=== PATIENT | female | born 2000 | race Caucasian/White ===

== ENCOUNTER 2020-05-01 15:56 | Emergency (ER) | payer BC ==
--- NOTE | 2020-05-01 16:13 | EDM.PDOC ---
ED HPI GENERAL MEDICAL PROBLEM - General Chief Complaint: General Stated Complaint: migraine, nausea Time Seen by Provider: 05/01/20 16:10 Source of Information: Reports: Patient, Old Records ([employer] EMR. No paper hospital chart available.) History Limitations: Reports: No Limitations. Denies: Language Barrier - History of Present Illness INITIAL COMMENTS - FREE TEXT/NARRATIVE: The patient drove herself to the emergency room for evaluation of her recurrent migraine headache with initial evaluation by her regular provider, PAPA Dhaliwal at the [facility] yesterday. The patient apparently received a Demerol/Phenergan injection at that time with initial complete resolution of her headache, however this did recur late last night and became more progressive at 12:30 p.m. this afternoon. She did try to take aspirin, however she immediately had one episode of emesis with no current nausea, etc.. Patient does have a long history of migraine headaches as below. No recent history of abdominal pain, heartburn, nausea, diarrhea, melena, gross hematochezia, or any food intolerance, including fatty foods, etc.. The patient also denies any recent fever, cough, wheezing, dyspnea, etc.. Her allergic rhinitis has been stable. Onset: Gradual Onset Date: 04/30/20 Duration: Getting Worse Location: Reports: Head. Denies: Face, Neck, Chest, Abdomen, Upper Extremity, Left, Upper Extremity, Right, Radiates to Quality: Reports: Same as Previous Episode, Throbbing Severity: Moderate Improves with: Reports: None Worsens with: Reports: None Context: Reports: Other (As above). Denies: Sick Contact, Trauma Associated Symptoms: Reports: Headaches, Nausea/Vomiting. Denies: Confusion, Chest Pain, Cough, Diaphoresis, Fever/Chills, Loss of Appetite, Malaise, Rash, Seizure, Shortness of Breath, Syncope Treatments BUSINESS RELATIONSHIP MANAGER: Reports: Aspirin Headache Pain Score (Numeric/FACES): 6 - Related Data Allergies Allergy/AdvReac Type Severity Reaction Status Date / Time lidocaine Allergy Swelling Verified 05/01/20 15:57 Penicillins Allergy Cannot Verified 05/01/20 15:57 Remember Home Meds: Home Meds Albuterol [Ventolin HFA] 2 puff INH Q4H PRN 05/01/20 [History] Montelukast [Singulair] 10 mg PO DAILY 05/01/20 [History] Mv,Calcium,Min/Iron/Folic/Vitk [Multi For Her Tablet] 1 each PO DAILY 05/01/20 [History] Past Medical History HEENT History: Reports: Allergic Rhinitis, Impaired Vision, Other (See Below) Other HEENT History: Patient wears glasses. Cardiovascular History: Reports: None Respiratory History: Reports: Asthma. Denies: Intubation, Previous Gastrointestinal History: Reports: GERD, Irritable Bowel Syndrome Genitourinary History: Reports: None FOSTER CARE SOCIAL WORKER History: Denies: LMP (Approximate): Other (See Below) Other FOSTER CARE SOCIAL WORKER History: LMP unknown with fairly irregular menses. Musculoskeletal History: Reports: None Neurological History: Reports: Migraines, Other (See Below) Other Neuro History: Recurrent migraine headaches since age 11 Psychiatric History: Reports: Anxiety, Depression Endocrine/Metabolic History: Reports: None Hematologic History: Reports: None Immunologic History: Reports: None Oncologic (Cancer) History: Reports: None Dermatologic History: Reports: Eczema - Infectious Disease History Infectious Disease History: Reports: None - Past Surgical History HEENT Surgical History: Reports: Adenoidectomy, Myringotomy w Tube(s), Tonsillectomy Cardiovascular Surgical History: Reports: None Respiratory Surgical History: Reports: None GI Surgical History: Reports: Colonoscopy, EGD Female Surgical History: Reports: None Neurological Surgical History: Reports: None Musculoskeletal Surgical History: Reports: None - Past Imaging History Past Imaging History: Reports: None Social & Family History - Family History Family Medical History: Noncontributory - Tobacco Use Smoking Status *Q: Never Smoker Tobacco Use Within Last Twelve Months: No Used Tobacco, but Quit: No Smoking Cessation Information Provided To Patient: No Second Hand Smoke Exposure: No Second Hand Smoke Education Provided: No - Caffeine Use Caffeine Use: Reports: Soda (1 soda 5 times per week) - Recreational Drug Use Recreational Drug Use: No Drug Use in Last 12 Months: No - Living Situation & Occupation Living situation: Reports: with Significant Other Occupation: Employed ([employer]) ED ROS GENERAL - Review of Systems Review Of Systems: Comprehensive ROS is negative, except as noted in HPI. ED EXAM, GENERAL - Physical Exam Exam: See Below Exam Limited By: No Limitations General Appearance: Alert, WD/WN, No Apparent Distress. No: Anxious Eye Exam: Bilateral Eye: EOMI, Normal Fundi, Normal Inspection (No nystagmus. Patient wearing glasses), PERRL Ears: Normal External Exam, Normal Canal, Hearing Grossly Normal, Normal TMs Nose: Normal Inspection, Normal Mucosa, No Blood Throat/Mouth: Normal Inspection, Normal Lips, Normal Teeth, Normal Gums, Normal Oropharynx, Normal Voice, No Airway Compromise. No: Dysphagia, Perioral Cyanosis Head: Atraumatic, Normocephalic. No: Facial Swelling, Facial Tenderness, Sinus Tenderness Neck: Normal Inspection, Supple, Non-Tender, Full Range of Motion. No: Lymphadenopathy (L), Lymphadenopathy (R), Thyromegaly Respiratory/Chest: No Respiratory Distress, Lungs Clear, Normal Breath Sounds, No Accessory Muscle Use, Chest Non-Tender. No: Pleural Rub, Retractions Cardiovascular: Normal Peripheral Pulses, Regular Rate, Rhythm, No Edema, No Gallop, No JVD, No Murmur, No Rub. No: Gallop/S3, Gallop/S4, Friction Rub Peripheral Pulses: 2+: Radial (L), Radial (R) GI/Abdominal: Normal Bowel Sounds, Soft, Non-Tender, No Organomegaly, No Distention, No Abnormal Bruit, No Mass. No: Guarding (Female) Exam: Deferred Rectal (Female) Exam: Deferred Back Exam: Normal Inspection, Full Range of Motion. No: CVA Tenderness (L), CVA Tenderness (R), Muscle Spasm Extremities: Normal Inspection, Normal Range of Motion, Non-Tender, Normal Capillary Refill, No Pedal Edema Neurological: Alert, Oriented, CN II-XII Intact, Normal Cognition, Normal Gait, Normal Reflexes, No Motor/Sensory Deficits Psychiatric: Normal Affect, Normal Mood Skin Exam: Stud(s) (Including 2 in the inferior lower lip region). No: Diaphoretic Lymphatic: No Adenopathy Course - Vital Signs Last Recorded V/S: Last Vital Signs Temp 36.9 C 05/01/20 15:59 Pulse 65 05/01/20 15:59 Resp 14 05/01/20 15:59 BP 123/74 05/01/20 15:59 Pulse Ox 98 05/01/20 15:59 Vital Signs - 24 hr 05/01/20 15:59 Temperature [ 36.9 C Temporal] Pulse, 65 Peripheral [ Pulse Oximetry] Respiratory 14 Rate Blood Pressure 123/74 [Left Upper Arm ] O2 Sat by Pulse 98 Oximetry - Orders/Labs/Meds Orders: Active Orders 24 hr Category Date Time Status Head wo Cont [CT] Stat Exams 05/01/20 17:46 Taken Obtain Past Medical Record [OM.PC] Routine Oth 05/01/20 16:13 Active Labs: Laboratory Tests 05/01/20 Range/Units 16:40 HCG, Qual Negative (NEGATIVE) Meds: Medications Discontinued Medications Generic Name Dose Route Start Last Admin Trade Name Sofia PRN Reason Stop Dose Admin Ketorolac Tromethamine 60 mg 05/01/20 16:24 05/01/20 17:21 Toradol IM 05/01/20 16:25 60 mg ONETIME ONE Administration Promethazine HCl 50 mg 05/01/20 16:24 05/01/20 17:22 Phenergan IM 05/01/20 16:25 50 mg ONETIME ONE Administration - Radiology Interpretation Free Text/Narrative:: Telephone consultation at 18:31 hours with the radiology department at [facility]. Preliminary verbal report of noncontrast CT scan of the head was negative for acute changes. CT Results Date: 05/01/20 CT Results Time: 18:31 Departure - Departure Time of Disposition: 18:55 Disposition: Home, Self-Care 01 Condition: Good Clinical Impression: Mixed anxiety depressive disorder Migraine headache Qualifiers: Migraine type: without aura Status migrainosus presence: without status mi grainosus Intractability: not intractable Qualified Code(s): G43.009 - Migraine without aura, not intractable, without status migrainosus Allergic rhinitis Qualifiers: Allergic rhinitis trigger: pollen Allergic rhinitis seasonality: seasonal Qualified Code(s): J30.1 - Allergic rhinitis due to pollen Asthma Qualifiers: Asthma severity: mild Asthma persistence: intermittent Asthma complication type: uncomplicated Qualified Code(s): J45.20 - Mild intermittent asthma, uncomplicated - Discharge Information *PRESCRIPTION DRUG MONITORING PROGRAM REVIEWED*: Not Applicable *COPY OF PRESCRIPTION DRUG MONITORING REPORT IN PATIENT RUY: Not Applicable Instructions: Recurrent Migraine Headache, [id number] Referrals: Mame Mishra NP [Primary Care Provider] - Forms: ED Department Discharge Additional Instructions: 1. Followup with your regular provider in 7-10 days as directed for reevaluation and discussion of initiation of a migraine headache preventative medications. Bring these discharge instructions with you to that visit. 2. Tylenol 650 mg by mouth every 4 hours and/or OTC ibuprofen 2-3 tabs by mouth every 6 hours with food as directed./needed. You may stagger these medications for 48-72 hours only, which essentially means that you are receiving a pain medication about every 2 hours. Next dose of ibuprofen in 6 hours as needed se condary to medications given in the emergency room 3. Sedation precautions with no driving, etc. for 18 hours because of emergency room medications. 4. Ice packs to head and neck, dark and quiet room, etc. as directed until headache resolves. 5. Discuss possible additional preventative medications for your headaches with your regular provider. Consider OTC magnesium oxide 400 mg every day as headache prevention with diarrhea precautions with this medicatiion as directed. Never initiate medications on your own, however, prior to discussing this with your regular provider. 6. Immediately after this visit verify that your cellular telephone's voicemail has been activated and is empty. Also verify that your home telephone's answering machine is operating properly and has space to receive messages. Note that it is sometimes necessary for us to be able to contact you at a later date to discuss your medical care. 7. Please remember that we are ALWAYS here for you and want to answer any questions you may have. Feel free to call the hospital any time and we call you back DIANA. Sepsis Event Note (ED) - Evaluation Sepsis Screening Result: No Definite Risk - Focused Exam Vital Signs: Vital Signs Temp Pulse Resp BP Pulse Ox 05/01/20 15:59 36.9 C 65 14 123/74 98 - Problem List & Annotations (1) Migraine headache SNOMED Code(s): 45035737 Code(s): G43.909 - MIGRAINE, UNSP, NOT INTRACTABLE, WITHOUT STATUS MIGRAINOSUS Status: Acute Priority: High Onset Date: 04/30/20 Annot ation/Comment:: Patient was completely symptom-free at time of discharge. Note the patient has had weekly headaches since age 11 with no previous workup. Negative CT scan of the head today. Close follow-up by regular provider as per discharge instructions with recommendation of initiation of prophylactic medication. Qualifiers: Migraine type: without aura Status migrainosus presence: without status migrainosus Intractability: not intractable Qualified Code(s): G43.009 - Migraine without aura, not intractable, without status migrainosus (2) Allergic rhinitis SNOMED Code(s): 15614471 Code(s): J30.9 - ALLERGIC RHINITIS, UNSPECIFIED Status: Chronic Priority: Medium Annotation/Comment:: Stable by history Qualifiers: Allergic rhinitis trigger: pollen Allergic rhinitis seasonality: seasonal Qualified Code(s): J30.1 - Allergic rhinitis due to pollen (3) Asthma SNOMED Code(s): 587861289 Code(s): J45.909 - UNSPECIFIED ASTHMA, UNCOMPLICATED Status: Chronic Priority: Medium Annotation/Comment:: Stable by history with no recent fever or bronchitic type symptoms. Qualifiers: Asthma severity: mild Asthma persistence: intermittent Asthma complication type: uncomplicated Qualified Code(s): J45.20 - Mild intermittent asthma, uncomplicated (4) Mixed anxiety depressive disorder SNOMED Code(s): 377582340 Code(s): F41.8 - OTHER SPECIFIED ANXIETY DISORDERS Status: Chronic Priority: Medium Annotation/Comment:: Stable by history. Consider TSH in light of irregular menses, etc. - Problem List Review Problem List Initiated/Reviewed/Updated: Yes - My Orders Last 24 Hours: My Active Orders 05/01/20 16:13 Obtain Past Medical Record [OM.PC] Routine 05/01/20 17:46 Head wo Cont [CT] Stat - Assessment/Plan Last 24 Hours: My Active Orders 05/01/20 16:13 Obtain Past Medical Record [OM.PC] Routine 05/01/20 17:46 Head wo Cont [CT] Stat Assessment:: As above Plan: As above. Extensive precautions were given to the patient and her significant other, who are in agreement with the treatment plan. See Patient Instructions for further treatment and plan.
[2020-05-01] MEDS: Ketorolac 60 MG/2 ML SDV IM ONE (17:21)
[2020-05-01] MEDS: Promethazine 25 MG/ML SDV IM ONE (17:22)
== END 2020-05-01 18:55 | disposition home or self-care (01) ==
LOC: LL.ED 15:56
DX: G43.009 Migraine without aura, not intractable, without status migrainosus (principal); J45.20 Mild intermittent asthma, uncomplicated; J30.1 Allergic rhinitis due to pollen; J30.2 Other seasonal allergic rhinitis; F41.8 Other specified anxiety disorders; Z88.0 Allergy status to penicillin; Z88.4 Allergy status to anesthetic agent
CPT/HCPCS: 36415; 70450; 84703; 96372; 99284; J1885; J2550

== ENCOUNTER 2021-07-29 02:23 | Emergency (ER) | payer BC ==
[2021-07-29 03:00] LABS: CHLORIDE,CL 100 mmol/L (98-107); SODIUM,NA 138 mmol/L (136-145)
[2021-07-29 03:07] LABS: ANION GAP 19.1 meq/L (7-15)
--- NOTE | 2021-07-29 03:35 | EDM.PDOC ---
ED HPI GENERAL MEDICAL PROBLEM - General Chief Complaint: Abdominal Pain Stated Complaint: abd pain Time Seen by Provider: 07/29/21 02:28 Source of Information: Reports: Patient, Old Records History Limitations: Reports: No Limitations - History of Present Illness INITIAL COMMENTS - FREE TEXT/NARRATIVE: Pt. presents to ER with complaints of intermittent lower abdominal pain, R>L, intermittent vaginal bleeding for the past week or so. Pt. states that her menstrual cycle is abnormal. She is on levonorgestrel estradiol for control and has had issues with irregular menses in the past. Pt. denies any fever or chills. No rectal bleeding. She states that she last had a BM yesterday, states that this did not seem to have an effect on the discomfort. She states that the BM was a bit loose. Denies any melena, hematochezia, or hematemesis. Pt. has been afebrile. Denies any cough. No chest pain or shortness of breath. Denies any lightheadedness or feeling faint. Pt. was seen in clinic by Luisa Shaikh NP earlier today. CBC and urine were obtained. She had no white count, no UTI. 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 She states that at work tonight the discomfort became progressively worse so she presents to ER. Again, pt. states that the pain comes and goes. Her appetite is normal. Denies any nausea or vomiting. Onset: Today - Related Data Allergies Allergy/AdvReac Type Severity Reaction Status Date / Time lidocaine Allergy Swelling Verified 05/01/20 15:57 Penicillins Allergy Cannot Verified 05/01/20 15:57 Remember Home Meds: Home Meds Albuterol [Ventolin HFA] 2 puff INH Q4H PRN 05/01/20 [History] Montelukast [Singulair] 10 mg PO DAILY 05/01/20 [History] Mv,Calcium,Min/Iron/Folic/Vitk [Multi For Her Tablet] 1 each PO DAILY 05/01/20 [History] Cyclobenzaprine [Flexeril] 10 mg PO TID PRN 07/29/21 [History] FLUoxetine [PROzac] 10 mg PO DAILY 07/29/21 [History] Levonorgestrel-Ethin Estradiol [Lutera-28 Tablet] 1 each PO DAILY 07/29/21 [History] Ondansetron [Zofran ODT] 4 mg PO Q6H PRN 07/29/21 [History] Past Medical History HEENT History: Reports: Allergic Rhinitis, Impaired Vision, Other (See Below) Other HEENT History: Patient wears glasses. Cardiovascular History: Reports: None Respiratory History: Reports: Asthma. Denies: Intubation, Previous Gastrointestinal History: Reports: GERD, Irritable Bowel Syndrome Genitourinary History: Reports: None MEMORIAL ADVISER History: Denies: Other MEMORIAL ADVISER History: LMP unknown with fairly irregular menses. Musculoskeletal History: Reports: None Neurological History: Reports: Migraines, Other (See Below) Other Neuro History: Recurrent migraine headaches since age 11 Psychiatric History: Reports: Anxiety, Depression Endocrine/Metabolic History: Reports: None Hematologic History: Reports: None Immunologic History: Reports: None Oncologic (Cancer) History: Reports: None Dermatologic History: Reports: Eczema - Infectious Disease History Infectious Disease History: Reports: None - Past Surgical History HEENT Surgical History: Reports: Adenoidectomy, Myringotomy w Tube(s), Tonsillectomy Cardiovascular Surgical History: Reports: None Respiratory Surgical History: Reports: None GI Surgical History: Reports: Colonoscopy, EGD Female Surgical History: Reports: None Neurological Surgical History: Reports: None Musculoskeletal Surgical History: Reports: None - Past Imaging History Past Imaging History: Reports: None Social & Family History - Family History Family Medical History: No Pertinent Family History - Tobacco Use Tobacco Use Status *Q: Never Tobacco User - Caffeine Use Caffeine Use: Reports: Energy Drinks - Recreational Drug Use Recreational Drug Use: Yes Recreational Drug Type: Reports: Marijuana/Hashish Recreational Drug Use Frequency: Socially - Living Situation & Occupation Living situation: Reports: with Significant Other Occupation: Employed ([employer]) ED ROS GENERAL - Review of Systems Review Of Systems: See Below Constitutional: Reports: No Symptoms HEENT: Reports: No Symptoms Respiratory: Reports: No Symptoms Cardiovascular: Reports: No Symptoms Endocrine: Reports: No Symptoms GI/Abdominal: Reports: Abdominal Pain. Denies: Anorexia, Black Stool, Bloody Stool, Constipation, Diarrhea, Decreased Appetite, Difficulty Swallowing, Hematemesis, Hematochezia, Melena, Nausea, Vomiting : Reports: Irregular Menses, Pain. Denies: Discharge, Dysuria, Flank Pain, Frequency, Hematuria, Incontinence, Urgency, Urinary Retention Musculoskeletal: Reports: No Symptoms Skin: Reports: No Symptoms Neurological: Reports: No Symptoms Psychiatric: Reports: No Symptoms Hematologic/Lymphatic: Reports: No Symptoms Immunologic: Reports: No Symptoms ED EXAM, GENERAL - Physical Exam Exam: See Below Exam Limited By: No Limitations General Appearance: Alert, WD/WN, No Apparent Distress Respiratory/Chest: No Respiratory Distress, Lungs Clear, Normal Breath Sounds, No Accessory Muscle Use, Chest Non-Tender Cardiovascular: Normal Peripheral Pulses, Regular Rate, Rhythm, No Edema, No Gallop, No JVD, No Murmur, No Rub Peripheral Pulses: 4+: Radial (L) GI/Abdominal: Normal Bowel Sounds, Soft, No Organomegaly, No Distention, No Abnormal Bruit, No Mass, Tender (minimal increase in discomfort on palpation. No rebound or guarding.). No: Distended, Guarding, Rigid, Rebound, Mass, Hepatomegaly, Splenomegaly (Female) Exam: Deferred Rectal (Female) Exam: Deferred Back Exam: Normal Inspection, Full Range of Motion Extremities: Normal Inspection, Normal Range of Motion, No Pedal Edema, Normal Capillary Refill Neurological: Alert, Oriented, CN II-XII Intact, Normal Cognition, Normal Gait, Normal Reflexes, No Motor/Sensory Deficits Psychiatric: Normal Affect, Normal Mood Skin Exam: Warm, Dry, Intact, Normal Color, No Rash Lymphatic: No Adenopathy Course - Vital Signs Last Recorded V/S: Last Vital Signs Temp 36.9 C 07/29/21 02:28 Pulse 70 07/29/21 02:28 Resp 14 07/29/21 02:28 BP 130/68 07/29/21 02:28 Pulse Ox 100 07/29/21 02:28 - Orders/Labs/Meds Labs: Laboratory Tests 07/29/21 07/29/21 07/29/21 Range/Units 02:38 02:38 02:42 WBC 7.1 (4.0-10.2) K/uL RBC 4.59 (3.77-5.09) M/uL Hgb 14.0 (11.7-15.5) g/dL Hct 40.8 (34.0-46.0) % MCV 88.9 (84.0-98.0) fL MCH 30.5 (28.2-33.3) pg MCHC 34.3 (31.7-36.0) g/dL RDW 12.6 (11.2-14.1) % Plt Count 258 (150-350) K/uL Neut % (Auto) 63.6 (45.0-80.0) % Lymph % (Auto) 25.7 (10.0-50.0) % [place] % (Auto) 8.3 (2.0-14.0) % Eos % (Auto) 2.1 (0.0-5.0) % Baso % (Auto) 0.3 (0.0-2.0) % Neut # (Auto) 4.53 (1.40-7.00) K/uL Lymph # (Auto) 1.83 (0.50-3.50) K/uL [place] # (Auto) 0.59 (0.00-1.00) K/uL Eos # (Auto) 0.15 (0.00-0.50) K/uL Baso # (Auto) 0.02 (0.00-0.20) K/uL Sodium 138 (136-145) mmol/L Potassium 3.2 L (3.5-5.1) mmol/L Chloride 100 (98-107) mmol/L Carbon Dioxide 22.1 (21.0-32.0) mmol/L Anion Gap 19.1 H (7-15) meq/L BUN 8 (7-18) mg/dL Creatinine 0.85 (0.51-1.17) mg/dL Est Cr Clr Drug Dosing TNP Estimated GFR (MDRD) > 60 mL/min Glucose 83 (70-99) mg/dL Calcium 8.4 L (8.5-10.1) mg/dL Total Bilirubin 0.5 (0.2-1.0) mg/dL AST 23 (15-37) U/L ALT 28 (12-78) U/L Alkaline Phosphatase 62 (46-116) IU/L C-Reactive Protein 0.5 (<=0.9) mg/dL Total Protein 7.5 (6.4-8.2) g/dL Albumin 3.8 (3.4-5.0) g/dL Specimen Type Urinvoid Urine Color Yellow Urine Appearance Clear Urine pH 6.0 (5.0-9.0) Ur Specific [place] 1.020 (1.005-1.030) Urine Protein Negative (NEGATIVE) mg/dL Urine Glucose (UA) Negative (NEGATIVE) mg/dL Urine Ketones 15 H (NEGATIVE) mg/dL Urine Occult Blood Negative (NEGATIVE) Urine Nitrite Negative (NEGATIVE) Urine Bilirubin Negative (NEGATIVE) Urine Urobilinogen 0.2 (0.2-1.0) E.U./dL Ur Leukocyte Esterase Negative (NEGATIVE) Urine RBC Not seen /HPF Urine WBC Not seen /HPF Ur Epithelial Cells Occasional /LPF Urine Bacteria Occasional (NONE TO FEW) /HPF Urinalysis Comment Urine HCG, Qual 07/29/21 Range/Units 02:42 WBC (4.0-10.2) K/uL RBC (3.77-5.09) M/uL Hgb (11.7-15.5) g/dL Hct (34.0-46.0) % MCV (84.0-98.0) fL MCH (28.2-33.3) pg MCHC (31.7-36.0) g/dL RDW (11.2-14.1) % Plt Count (150-350) K/uL Neut % (Auto) (45.0-80.0) % Lymph % (Auto) (10.0-50.0) % [place] % (Auto) (2.0-14.0) % Eos % (Auto) (0.0-5.0) % Baso % (Auto) (0.0-2.0) % Neut # (Auto) (1.40-7.00) K/uL Lymph # (Auto) (0.50-3.50) K/uL [place] # (Auto) (0.00-1.00) K/uL Eos # (Auto) (0.00-0.50) K/uL Baso # (Auto) (0.00-0.20) K/uL Sodium (136-145) mmol/L Potassium (3.5-5.1) mmol/L Chloride (98-107) mmol/L Carbon Dioxide (21.0-32.0) mmol/L Anion Gap (7-15) meq/L BUN (7-18) mg/dL Creatinine (0.51-1.17) mg/dL Est Cr Clr Drug Dosing Estimated GFR (MDRD) mL/min Glucose (70-99) mg/dL Calcium (8.5-10.1) mg/dL Total Bilirubin (0.2-1.0) mg/dL AST (15-37) U/L ALT (12-78) U/L Alkaline Phosphatase (46-116) IU/L C-Reactive Protein (<=0.9) mg/dL Total Protein (6.4-8.2) g/dL Albumin (3.4-5.0) g/dL Specimen Type Urine Color Urine Appearance Urine pH (5.0-9.0) Ur Specific [place] (1.005-1.030) Urine Protein (NEGATIVE) mg/dL Urine Glucose (UA) (NEGATIVE) mg/dL Urine Ketones (NEGATIVE) mg/dL Urine Occult Blood (NEGATIVE) Urine Nitrite (NEGATIVE) Urine Bilirubin (NEGATIVE) Urine Urobilinogen (0.2-1.0) E.U./dL Ur Leukocyte Esterase (NEGATIVE) Urine RBC /HPF Urine WBC /HPF Ur Epithelial Cells /LPF Urine Bacteria (NONE TO FEW) /HPF Urinalysis Comment Urine HCG, Qual Negative Departure - Departure Time of Disposition: 03:41 Disposition: Home, Self-Care 01 Clinical Impression: DUB (dysfunctional uterine bleeding) - Discharge Information Instructions: Abnormal Uterine Bleeding Referrals: Luisa Shaikh NP [Primary Care Provider] - Forms: ED Department Discharge Additional Instructions: Home to rest. Off work today. Ibuprofen 200mg 3 tabs every 6 hours as needed for pain Tylenol with codeine 1 tab every 4-6 hours as needed for severe pain Follow-up with Luisa in the clinic Return to ER if you notice worsening discomfort that doesn't go away, if you are unable to hold down fluids, or feel lightheaded. Sepsis Event Note (ED) - Evaluation Sepsis Screening Result: No Definite Risk - Focused Exam Vital Signs: Vital Signs Temp Pulse Resp BP Pulse Ox 07/29/21 02:28 36.9 C 70 14 130/68 100 - Problem List Review Problem List Initiated/Reviewed/Updated: Yes - Assessment/Plan Plan: pelvic ultrasound was ordered. CBC, CMP, CRP, and urine were all negative. Pt. has no peritoneal signs, guarding, or rebound. Cause of discomfort likely ovarian or uterine in nature, based on exam, timing, and other symptoms. The pain comes and goes, which would not typically be a feature of appendicitis. Given the fact that she is experiencing vaginal bleeding as well, she was set up for a pelvic ultrasound. She can use ibuprofen 600mg every 6 hours for pain. I did give he a short course of tylenol #3 for pain not palliated by the ibuprofen. Advised close follow-up with Luisa Shaikh NP. Return to ER if she develops worsening discomfort, nausea, vomiting, lightheadedness, or call if she has questions.
== END 2021-07-29 03:25 | disposition home or self-care (01) ==
LOC: LL.ED 02:23
DX: N93.8 Other specified abnormal uterine and vaginal bleeding (principal); J45.909 Unspecified asthma, uncomplicated; Z88.1 Allergy status to other antibiotic agents; Z88.4 Allergy status to anesthetic agent
CPT/HCPCS: 36415; 80053; 81001; 81025; 85025; 86140; 99284

== ENCOUNTER 2021-09-22 04:20 | Emergency (ER) | payer BC ==
[2021-09-22] MEDS ORDERED: Ketorolac 60 MG/2 ML SDV IM ONE (05:14)
[2021-09-22] MEDS ORDERED: diphenhydrAMINE 50 MG/ML SDV IM ONE (05:15)
[2021-09-22] MEDS ORDERED: Promethazine 25 MG/ML SDV IM ONE (05:15)
--- NOTE | 2021-09-22 05:22 | EDM.PDOC ---
ED HPI GENERAL MEDICAL PROBLEM - General Chief Complaint: Headache Stated Complaint: headache Time Seen by Provider: 09/22/21 04:40 Source of Information: Reports: Patient History Limitations: Reports: No Limitations - History of Present Illness INITIAL COMMENTS - FREE TEXT/NARRATIVE: Comes to ER with migraine complaint. Long history of migraines. Has not had to come to the ER for awhile for treatment. Left sided frontal headache. Present for over 24 hours/started Monday. Diagnosed with Covid on Monday. Reports body aches/cough/nausea/emesis over the weekend. STill with some emesis and nausea. No SOB/fevers. Used usual abortive medications but no significant improvement of headache. - Related Data Allergies Allergy/AdvReac Type Severity Reaction Status Date / Time lidocaine Allergy Swelling Verified 05/01/20 15:57 Penicillins Allergy Cannot Verified 05/01/20 15:57 Remember Home Meds: Home Meds Albuterol [Ventolin HFA] 2 puff INH Q4H PRN 05/01/20 [History] Montelukast [Singulair] 10 mg PO DAILY 05/01/20 [History] Mv,Calcium,Min/Iron/Folic/Vitk [Multi For Her Tablet] 1 each PO DAILY 05/01/20 [History] Cyclobenzaprine [Flexeril] 10 mg PO TID PRN 07/29/21 [History] FLUoxetine [PROzac] 10 mg PO DAILY 07/29/21 [History] Levonorgestrel-Ethin Estradiol [Lutera-28 Tablet] 1 each PO DAILY 07/29/21 [History] Ondansetron [Zofran ODT] 4 mg PO Q6H PRN 07/29/21 [History] Ondansetron [Zofran ODT] 4 mg PO Q6H PRN #12 tab.dis 09/22/21 [Rx] Past Medical History HEENT History: Reports: Allergic Rhinitis, Impaired Vision, Other (See Below) Other HEENT History: Patient wears glasses. Cardiovascular History: Reports: None Respiratory History: Reports: Asthma. 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 Musculoskeletal History: Reports: None Neurological History: Reports: Migraines, Other (See Below) Other Neuro History: Recurrent migraine headaches since age 11 Psychiatric History: Reports: Anxiety, Depression Endocrine/Metabolic History: Reports: None Hematologic History: Reports: None Immunologic History: Reports: None Oncologic (Cancer) History: Reports: None Dermatologic History: Reports: Eczema - Infectious Disease History Infectious Disease History: Reports: None - Past Surgical History HEENT Surgical History: Reports: Adenoidectomy, Myringotomy w Tube(s), Tonsillectomy Cardiovascular Surgical History: Reports: None Respiratory Surgical History: Reports: None GI Surgical History: Reports: Colonoscopy, EGD Female Surgical History: Reports: None Neurological Surgical History: Reports: None Musculoskeletal Surgical History: Reports: None - Past Imaging History Past Imaging History: Reports: None Social & Family History - Family History Family Medical History: No Pertinent Family History - Caffeine Use Caffeine Use: Reports: Energy Drinks - Living Situation & Occupation Living situation: Reports: with Significant Other Occupation: Employed ([employer]) ED ROS GENERAL - Review of Systems Review Of Systems: See Below Constitutional: Reports: Malaise, Fatigue. Denies: Fever, Chills, Night Sweats, Diaphoresis HEENT: Reports: Rhinitis Respiratory: Reports: Cough Cardiovascular: Reports: No Symptoms GI/Abdominal: Reports: Decreased Appetite, Nausea, Vomiting. Denies: Abdominal Pain, Constipation, Diarrhea, Hematemesis, Hematochezia : Reports: No Symptoms Musculoskeletal: Reports: Other (body aches) Skin: Reports: No Symptoms Neurological: Reports: Headache. Denies: Numbness, Paresthesia, Tingling, Trouble Speaking, Difficulty Walking, Change in Speech Psychiatric: Reports: No Symptoms ED EXAM, GENERAL - Physical Exam Exam: See Below Exam Limited By: No Limitations General Appearance: Alert, WD/WN, No Apparent Distress Eye Exam: Bilateral Eye: EOMI, PERRL Ears: Normal External Exam, Normal Canal, Hearing Grossly Normal Nose: No: Nasal Deformity, Nasal Swelling, Nasal Drainage Throat/Mouth: Normal Lips, Normal Voice, No Airway Compromise Head: Atraumatic, Normocephalic Neck: Normal Inspection, Supple, Non-Tender, Full Range of Motion Respiratory/Chest: No Respiratory Distress, Lungs Clear, Normal Breath Sounds, No Accessory Muscle Use Cardiovascular: Regular Rate, Rhythm, No Murmur GI/Abdominal: Soft, Non-Tender (Female) Exam: Deferred Rectal (Female) Exam: Deferred Back Exam: No: CVA Tenderness (L), CVA Tenderness (R), Muscle Spasm Extremities: Normal Inspection, Normal Range of Motion, Normal Capillary Refill Neurological: Alert, Oriented, CN II-XII Intact, Normal Cognition, Normal Gait, No Motor/Sensory Deficits Psychiatric: Normal Affect, Normal Mood Skin Exam: Warm, Dry, Intact, Normal Color Course - Orders/Labs/Meds Orders: Active Orders 24 hr Category Date Time Status Ketorolac [Toradol] Med 09/22/21 05:14 Once 60 mg IM ONETIME ONE Promethazine [Phenergan] Med 09/22/21 05:15 Once 25 mg IM ONETIME ONE diphenhydrAMINE [Benadryl] Med 09/22/21 05:15 Once 50 mg IM ONETIME ONE - Re-Assessments/Exams Free Text/Narrative Re-Assessment/Exam: 09/22/21 05:20 Migraine headache in patient with recently diagnosed Covid. Discussed with patient that this headache is more likely related to the Covid which is why it is not responding as well to usual migraine regimen. Will give Toradol/Phenergan/Benadryl IM and see if that improves the headache. Precautions reviewed and to follow up as needed prn problems/concerns. Departure - Departure Time of Disposition: 05:40 Disposition: Home, Self-Care 01 Condition: Good Clinical Impression: COVID-19 virus infection Migraine headache Qualifiers: Migraine type: without aura Status migrainosus presence: without status migrainosus Intractability: not intractable Qualified Code(s): G43.009 - Migraine without aura, not intractable, without status migrainosus - Discharge Information *PRESCRIPTION DRUG MONITORING PROGRAM REVIEWED*: Not Applicable *COPY OF PRESCRIPTION DRUG MONITORING REPORT IN PATIENT RUY: Not Applicable Prescriptions: Ondansetron [Zofran ODT] 4 mg PO Q6H PRN #12 tab.dis PRN Reason: Nausea Instructions: 10 Things You Can Do to Manage Your COVID-19 Symptoms at Home - [facility] (05/07/2021) Referrals: Luisa Shaikh NP [Primary Care Provider] - Additional Instructions: Home/rest/stay hydrated. Remember that Covid often causes headaches and these will be difficult to completely get rid of during the initial Covid infection. Follow up as needed for any acute concerns/sudden worsening. - My Orders Last 24 Hours: My Active Orders 09/22/21 05:14 Ketorolac [Toradol] 60 mg IM ONETIME ONE 09/22/21 05:15 Promethazine [Phenergan] 25 mg IM ONETIME ONE diphenhydrAMINE [Benadryl] 50 mg IM ONETIME ONE - Assessment/Plan Last 24 Hours: My Active Orders 09/22/21 05:14 Ketorolac [Toradol] 60 mg IM ONETIME ONE 09/22/21 05:15 Promethazine [Phenergan] 25 mg IM ONETIME ONE diphenhydrAMINE [Benadryl] 50 mg IM ONETIME ONE
== END 2021-09-22 05:40 | disposition home or self-care (01) ==
LOC: LL.ED 04:20
DX: G43.009 Migraine without aura, not intractable, without status migrainosus (principal); U07.1 COVID-19; Z88.0 Allergy status to penicillin; Z88.4 Allergy status to anesthetic agent
CPT/HCPCS: 96372; 99283; J1200; J1885; J2550

== ENCOUNTER 2022-02-10 16:48 | Emergency (ER) | payer BC ==
[2022-02-10] MEDS ORDERED: Ketorolac 30 MG/ML SDV IM ONE (17:05)
[2022-02-10] MEDS ORDERED: diphenhydrAMINE 50 MG/ML SDV IM ONE (17:05)
[2022-02-10] MEDS ORDERED: Promethazine 25 MG/ML SDV IM ONE (17:06)
[2022-02-10] MEDS ORDERED: SUMAtriptan 6 MG/0.5 ML SDV SUBCUT ONE (17:24)
== END 2022-02-10 18:00 | disposition home or self-care (01) ==
LOC: LL.ED 16:48
DX: G43.909 Migraine, unspecified, not intractable, without status migrainosus (principal); Z88.0 Allergy status to penicillin; Z88.4 Allergy status to anesthetic agent
CPT/HCPCS: 96372; 99283; J1200; J1885; J2550; J3030

== ENCOUNTER 2022-11-18 07:18 | Emergency (ER) | payer BC ==
[2022-11-18] MEDS ORDERED: Sodium Chloride 0.9% 1,000 ML IV ONE (07:22)
[2022-11-18] MEDS ORDERED: Sodium Chloride 0.9% 10 ML Syringe FLUSH PRN (07:22)
[2022-11-18] MEDS ORDERED: Ondansetron 4 MG/2 ML SDV IVPUSH PRN (07:26)
[2022-11-18] MEDS ORDERED: Ketorolac 30 MG/ML SDV IVPUSH ONE (07:27)
[2022-11-18 08:15] LABS: ANION GAP 5.3 meq/L (7-15); CHLORIDE,CL 103 mmol/L (98-107); SODIUM,NA 137 mmol/L (136-145)
[2022-11-18 08:16] LABS: ESTIMATED GFR 101 mL/min (>=60)
== END 2022-11-18 08:57 | disposition home or self-care (01) ==
LOC: LL.ED 07:18
DX: G43.909 Migraine, unspecified, not intractable, without status migrainosus (principal); K21.9 Gastro-esophageal reflux disease without esophagitis; Z88.4 Allergy status to anesthetic agent; Z88.0 Allergy status to penicillin
CPT/HCPCS: 36415; 80053; 85025; 96361; 96374; 96375; 99283; J1885; J2405; J3490; J7030